=== PATIENT | male | born 1970 | race Caucasian/White ===

== ENCOUNTER → 2023-07-22 | Outpatient (CLI) | payer OTHER ==
[2023-07-22 12:06] VITALS: BP 128/72; PULSE 78; RESP 16; TEMP 97.9
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
== END ==
LOC: 3 N SLEEP 11:34
PROVIDERS: ATTEND Internal Medicine
DX: G47.33 Obstructive sleep apnea (adult) (pediatric) (principal); E66.01 Morbid (severe) obesity due to excess calories; E23.2 Diabetes insipidus; E78.5 Hyperlipidemia, unspecified; R35.1 Nocturia; Z68.43 Body mass index [BMI] 50.0-59.9, adult
CPT/HCPCS: 99211

== ENCOUNTER 2023-09-06 19:38 | Outpatient (CLI) | payer OTHER ==
--- NOTE | 2023-09-09 10:42 | P.PCN ---
Description of Procedure: POLYSOMNOGRAPHY REPORT PROCEDURE(S)/DATE(S): Polysomnography 09/06/2023 CLINICAL: Patient has been seen in the sleep center for evaluation of obstructive sleep apnea-hypopnea syndrome. Please see my consultation. Sleep study has been done for evaluation of patient breathing during the sleep. PROCEDURE: The standard montage for clinical polysomnography included the electroencephalogram, the electrooculogram, the mentalis surface electromyography and Lead II cardiography. The respiratory battery consisted of measurements of nasal/buccal air flow, pressure transducer measurements from nose, thoracic and/or abdominal effort and intercostal surface electromyography. Video monitoring has been done to check for any parasomnia events. Nocturnal oxyhemoglobin saturations were obtained by finger oximetry. Step-peter titration with positive airway pressure was utilized to control the respiratory events, if necessary. RESULTS: During the diagnostic sleep study sleep efficiency was extremely short 36.2%. Latency to sleep onset was significantly prolonged to 63.0 min. Sleep architecture showed stage NI was significantly increased to 14.2%, Delta sleep was in normal range 6.4%, REM sleep was short 16.9%. Respiratory channel showed 4 obstructive apneas, 0 mixed apneas, 0 central apneas, 29 hypopneas with lowest oxygen level 66%. Total apnea hypopnea index was 14.8. Heart rate was in the range between 59 and 71, average 63. EMG showed 29.2 periodic limb movements per hour with 0.9 micro-arousals per hour. IMPRESSIONS: 1. Obstructive sleep apnea hypopnea syndrome. 2. Periodic limb movements have been documented. Please see other impressions from consultation PLAN: 1. The patient will have PAP titration for correction of respiratory abnormalities during the sleep. 2. Losing weight program. 3. Sleep hygiene with regular time in bed for at least 7-1/2 hours. 4. No driving if feeling sleepiness. 5. Please check iron profile including ferritin level. Low level of iron may increase the risk for periodic limb movements. Thank you very much for allowing me to participate in the management of your patient. Sincerely, Elías Peres MD, PhD, FAASM. Diplomat of [employer], Sleep Medicine Board by [employer] Orthotic Technician [facility] [place] cc: Leonid Scales DO
== END 2023-09-07 04:45 | disposition home or self-care (01) ==
LOC: 3 N SLEEP 19:38
PROVIDERS: ATTEND Internal Medicine
DX: G47.33 Obstructive sleep apnea (adult) (pediatric) (principal); G47.61 Periodic limb movement disorder
CPT/HCPCS: 95810

== ENCOUNTER 2024-02-21 08:38 | Day surgery (SDC) | payer OTHER ==
[2024-02-17 10:35] VITALS: BMI 48.8
[~2024-02-21 08:38] MED LIST: LACTATED RINGERS 1,000 ML IV SCH; LIDOCAINE 1% (10MG/ML) FOR IV START INTRADERMA PRN
[2024-02-21 08:59] VITALS: TEMP 97
[2024-02-21] MEDS: SODIUM CHLORIDE 0.9% 1,000 ML IV ONE (09:05)
[2024-02-21] MEDS ORDERED: PROPOFOL 10 MG/ML 20 ML VIAL IV ONE (09:07)
[2024-02-21 09:09] LABS: Glucose,Whole Blood 107 mg/dL (70-110)
[2024-02-21 09:29] VITALS: RESP 16
[2024-02-21 09:37] VITALS: BP 136/86; PULSE 77
--- NOTE | 2024-02-21 12:42 | P.OP ---
Date of Procedure: 02/21/24 Preoperative Diagnosis: Screening Colonoscopy, Polyp Surveillance Postoperative Diagnosis: Cecal Inflammation Procedure(s) Performed: Colonoscopy with Biopsy Anesthesia: CHASITY Surgeon: Fran Maxwell Pathology: other (Cecal Biopsies) Condition: stable Disposition: PACU Description of Procedure: After informed consent was obtained, the patient was placed in the left lateral position and sedated. Monitoring was provided throughout the entire procedure. Digital rectal exam was performed revealing normal sphincter tone and no external hemorrhoids. The colonoscope was inserted into rectum and advanced under direct visualization, without difficulty, to the cecum, where the cecal strap, appendiceal orifice, and the ileocecal valve were identified. The quality of the preparation was good. The colonoscope was then withdrawn while carefully examining the mucosa. The colonic mucosa appeared normal with normal vascularity and haustral markings. No masses, polyps, AVM/s or diverticula were seen. There were inflammatory areas in the cecum which were biopsied. The endoscope was removed and the procedure terminated. The patient tolerated the procedure well without complications.
== END 2024-02-21 09:55 | disposition home or self-care (01) ==
LOC: ORWHC2ENDO 08:38
PROVIDERS: ATTEND Surgery
DX: Z12.11 Encounter for screening for malignant neoplasm of colon (principal); E78.5 Hyperlipidemia, unspecified; G47.33 Obstructive sleep apnea (adult) (pediatric); E11.9 Type 2 diabetes mellitus without complications; E66.01 Morbid (severe) obesity due to excess calories; Z99.89 Dependence on other enabling machines and devices; Z79.899 Other long term (current) drug therapy; Z87.828 Personal history of other (healed) physical injury and trauma
CPT/HCPCS: 45380; J2704; 88305

== ENCOUNTER → 2024-06-21 | Outpatient (CLI) | payer OTHER ==
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
== END | disposition home or self-care (01) ==
LOC: RADXRMAIN 14:58
PROVIDERS: ATTEND Family Medicine
DX: M17.11 Unilateral primary osteoarthritis, right knee (principal); M25.461 Effusion, right knee; M25.552 Pain in left hip
CPT/HCPCS: 73502